=== PATIENT | female | born 1980 | race Caucasian/White ===

== ENCOUNTER 2020-10-08 02:22 | Emergency (ER) | payer OTHER, MEDICAID ==
[~2020-10-08] VITALS: Ht 162.6 cm; Wt 90.0 kg
--- NOTE | 2020-10-08 02:32 | NUR ---
Patient BIB air from [facility] with kidney stones. Patient went to their facility today c/o L flank pain with N/V. 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 En route, EMS admin Zofran, Ativan, Reglan, and 500mL NS. Patient is in NAD. Respirations even and unlabored.
[2020-10-08] MEDS ORDERED: SODIUM CHLORIDE 0.9% 1,000ML IVBOLUS ONE (03:00)
[2020-10-08] MEDS ORDERED: ONDANSETRON 2MG/ML, 2ML IVPush ONE (03:00)
[2020-10-08] MEDS ORDERED: MORPHINE SULFATE 4 MG/ML, 1ML IVPush PRN (03:00)
[2020-10-08] MEDS ORDERED: ONDANSETRON 2MG/ML, 2ML ONE (03:05)
[2020-10-08] MEDS ORDERED: METOCLOPRAMIDE 5 MG/ML, 2ML ONE (03:12)
[2020-10-08 03:14] LABS: MICROSCOPIC INDICATED
[2020-10-08] MEDS ORDERED: METOCLOPRAMIDE 5 MG/ML, 2ML IVPush ONE (03:30)
--- NOTE | 2020-10-08 03:43 | NUR ---
BREAK RN: PT. RESTING ON GURNEY WITH EYES CLOSED. REPIRATIONS VISIBLE AND NON-LABORED. SPO2 AND B/P MONITORS IN PLACE. CALL LIGHT IN REACH. ALL SAFETY MEASURES OBSERVED.
[2020-10-08] MEDS ORDERED: IBUPROFEN 600 MG TABLET PO PRN (06:00)
[2020-10-08] MEDS ORDERED: HYDROcodone/APAP 5/325 TABLET PO PRN (06:00)
--- NOTE | 2020-10-08 06:05 | NUR ---
Patient ambulated to bathroom without assistance. Patient has no complaints at this time. Awaiting patient's ride from [facility].
--- NOTE | 2020-10-08 06:58 | NUR ---
REPORT FROM [facility]
--- NOTE | 2020-10-08 06:59 | NUR ---
Report given to SABINA Callaway. Patient care transferred.
--- NOTE | 2020-10-08 07:13 | NUR ---
PT SLEEPING IN BED WITH CONT SPO2 95%, EVEN AND UNLABORED RR.
--- NOTE | 2020-10-08 07:22 | NUR ---
Pt resting comfortably in bed with symetrical chest rise, respirations even and unlabored, NADN
[2020-10-08] MEDS ORDERED: IBUPROFEN 600 MG TABLET ONE (08:04)
[2020-10-08] MEDS ORDERED: HYDROcodone/APAP 5/325 TABLET ONE (08:04)
[2020-10-08 10:29] VITALS: BP 124/54
== END 2020-10-08 10:31 | disposition home or self-care (01) ==
LOC: ED 05:14
DX: N20.2 Calculus of kidney with calculus of ureter (principal); J45.909 Unspecified asthma, uncomplicated; R11.2 Nausea with vomiting, unspecified
CPT/HCPCS: 81001; 87086; 96361; 96374; 99285; J2765; J7030